=== PATIENT | male | born 1955 | race Caucasian/White ===

== ENCOUNTER → 2017-12-09 | Outpatient (CLI) | payer BC ==
--- NOTE | 2017-12-09 21:11 | DIAGNOSTIC IMAGING REPORT ---
CHEST 2 VIEWS ROUTINE HISTORY: 62 years-old Male COUGH acute cough and wheezing with shortness of breath COMPARISON: None available TECHNIQUE: PA and lateral views of the chest FINDINGS: Cardiomediastinal and hilar silhouettes are within normal limits. There is no pneumothorax, pleural effusion, focal airspace consolidation or overt pulmonary edema. Degenerative changes of the shoulders and spine. IMPRESSION: No acute process. The above report was generated using voice recognition software. It may contain grammatical, syntax or spelling errors. Electronically signed by: Dilshad Wright M.D. 12/09/2017 9:10 PM Dictated Date/Time: 12/09/2017 9:08 PM
== END | disposition home or self-care (01) ==
LOC: C.RAD 20:41
PROVIDERS: ATTEND Family Medicine
DX: R06.2 Wheezing (principal); R05 Cough